=== PATIENT | female | born 1960 | race Caucasian/White ===

== ENCOUNTER 2018-11-21 19:30 | Emergency (ER) | payer MEDICAID ==
[2018-11-21 21:09] LABS: ADD MAN DIFF? NO; BASOPHILS % 0.4 % (0.0-2.0); EOSINOPHILS # 0.1 10^3/ul (0.0-0.5); EOSINOPHILS % 1.5 % (0.0-7.0); HEMATOCRIT 39.8 % (37.0-47.0); HEMOGLOBIN 12.9 g/dl (12.0-16.0); LYMPHOCYTES # 2.6 10^3/ul (0.8-2.9); MEAN CORPUSCULAR HEMOGLOBIN 30.3 pg (29.0-33.0); MEAN CORPUSCULAR HGB CONC 32.4 g/dl (32.0-37.0); MEAN CORPUSCULAR VOLUME 93.4 fl (82.0-101.0); MEAN PLATELET VOLUME 11.5 fl (7.4-10.4); MONOCYTE # 0.7 10^3/ul (0.3-0.9); MONOCYTES % 7.5 % (0.0-11.0); NEUTROPHIL # 5.6 10^3/ul (1.6-7.5); NEUTROPHILS % 61.3 % (39.0-77.0); PLATELET COUNT 332 10^3/UL (140-415); RED BLOOD COUNT 4.26 10^6/ul (4.20-5.40); RED CELL DISTRIBUTION WIDTH 12.4 % (11.5-14.5)
[2018-11-21 21:09] LABS: WHITE BLOOD COUNT 9.1 10^3/ul (4.8-10.8)
[2018-11-21 21:15] LABS: ANION GAP 13 (5-13); BLOOD UREA NITROGEN 11 mg/dl (7-20); CALCIUM 9.4 mg/dl (8.4-10.2); CARBON DIOXIDE 28 mmol/L (21-31); CHLORIDE 104 mmol/L (97-110); CREATININE 0.66 mg/dl (0.44-1.00); Estimated GFR > 60 mL/min (>60); GLUCOSE 113 mg/dl (70-220); POTASSIUM 3.8 mmol/L (3.5-5.1); SODIUM 145 mmol/L (135-144)
[2018-11-21 21:27] LABS: TROPONIN-I < 0.012 ng/ml (0.000-0.120)
[2018-11-21] MEDS: KETOROLAC 15 MG INJ IV (21:30)
[2018-11-21] MEDS: METHYLPREDNISOLONE 125 MG INJ IV (21:30)
[2018-11-21] MEDS: ALBUTEROL 0.5% (NEB) 2.5 MG/0.5 ML AMP INH (22:07)
[2018-11-21] MEDS: IPRATROPIUM (NEB) 0.5 MG/2.5 ML AMP INH (22:07)
== END 2018-11-21 23:52 | disposition home or self-care (01) ==
LOC: E/R 19:30
DX: J45.21 Mild intermittent asthma with (acute) exacerbation (principal); G44.219 Episodic tension-type headache, not intractable; E11.9 Type 2 diabetes mellitus without complications; I10 Essential (primary) hypertension; Z79.82 Long term (current) use of aspirin; Z79.84 Long term (current) use of oral hypoglycemic drugs; Z86.73 Personal history of transient ischemic attack (TIA), and cerebral infarction without residual deficits
CPT/HCPCS: 36415; 71045; 80048; 84484; 85025; 93005; 94644; 96374; 96375; 99285-25

== ENCOUNTER 2019-02-10 12:34 | Emergency (ER) | payer MEDICAID ==
[2019-02-10 13:15] LABS: ADD MAN DIFF? NO
[2019-02-10] MEDS: FAMOTIDINE 20 MG INJ IV (13:16)
[2019-02-10] MEDS: SOD CHLORIDE 0.9% 1,000 ML IV (13:16)
[2019-02-10] MEDS: morphine 4 MG/ML VIAL IV (13:16)
[2019-02-10 13:20] LABS: WHITE BLOOD COUNT 8.3 10^3/ul (4.8-10.8)
[2019-02-10 13:20] LABS: BASOPHILS % 0.4 % (0.0-2.0); EOSINOPHILS # 0.1 10^3/ul (0.0-0.5); EOSINOPHILS % 1.4 % (0.0-7.0); HEMATOCRIT 38.9 % (37.0-47.0); HEMOGLOBIN 12.7 g/dl (12.0-16.0); LYMPHOCYTES # 2.8 10^3/ul (0.8-2.9); LYMPHOCYTES % 33.6 % (15.0-51.0); MEAN CORPUSCULAR HEMOGLOBIN 30.2 pg (29.0-33.0); MEAN CORPUSCULAR HGB CONC 32.6 g/dl (32.0-37.0); MEAN CORPUSCULAR VOLUME 92.6 fl (82.0-101.0); MEAN PLATELET VOLUME 11.1 fl (7.4-10.4); MONOCYTE # 0.6 10^3/ul (0.3-0.9); MONOCYTES % 7.7 % (0.0-11.0); NEUTROPHIL # 4.7 10^3/ul (1.6-7.5); NEUTROPHILS % 56.5 % (39.0-77.0); PLATELET COUNT 293 10^3/UL (140-415); RED CELL DISTRIBUTION WIDTH 12.7 % (11.5-14.5)
[2019-02-10 13:42] LABS: ADD UMIC YES; INR 0.92; PROTIME 12.5 Sec (11.9-14.9); UR ASCORBIC ACID 20 mg/dL (NEGATIVE); UR BILIRUBIN (Dip) NEGATIVE (NEGATIVE); UR BLOOD (Dip) NEGATIVE (NEGATIVE); UR CLARITY SLIGHTLY CLOUDY (CLEAR); UR COLOR YELLOW (YELLOW); UR GLUCOSE (Dip) NEGATIVE (NEGATIVE); UR KETONES (Dip) NEGATIVE (NEGATIVE); UR LEUKOCYTE ESTERASE (Dip) TRACE Leu/ul (NEGATIVE); UR MUCUS FEW /HPF (NONE SEEN); UR NITRITE (Dip) NEGATIVE (NEGATIVE); UR RBC 3 /HPF (0-5); UR SPECIFIC GRAVITY (Dip) 1.021 (1.003-1.030); UR SQUAMOUS EPITHELIAL CELL MODERATE /HPF (FEW); UR TOTAL PROTEIN (Dip) NEGATIVE (NEGATIVE); UR UROBILINOGEN (Dip) NEGATIVE (NEGATIVE); UR WBC 4 /HPF (0-5)
[2019-02-10 13:54] LABS: ALANINE AMINOTRANSFERASE 24 IU/L (13-69); ALBUMIN 4.3 g/dl (3.3-4.9); ALBUMIN/GLOBULIN RATIO 1.16; ALKALINE PHOSPHATASE 111 IU/L (42-121); AMYLASE 66 U/L (11-123); ANION GAP 8 (5-13); ASPARTATE AMINO TRANSFERASE 31 IU/L (15-46); BILIRUBIN,INDIRECT 0.6 mg/dl (0-1.1); BILIRUBIN,TOTAL 0.6 mg/dl (0.2-1.3); BLOOD UREA NITROGEN 11 mg/dl (7-20); CALCIUM 9.4 mg/dl (8.4-10.2); CARBON DIOXIDE 29 mmol/L (21-31); CHLORIDE 107 mmol/L (97-110); CREATININE 0.66 mg/dl (0.44-1.00); Estimated GFR > 60 mL/min (>60); GLUCOSE 128 mg/dl (70-220); LIPASE 39 U/L (23-300); SODIUM 144 mmol/L (135-144)
[2019-02-10 14:05] LABS: TROPONIN-I < 0.012 ng/ml (0.000-0.120)
[2019-02-10] MEDS: SOD CHLORIDE 0.9% 100 ML (14:49)
[2019-02-10] MEDS: IOHEXOL 300MG/ML 150 ML BTL (14:49)
[2019-02-10] MEDS: MAGNESIUM HYDROXIDE 30ML CUP PO (15:55)
== END 2019-02-10 16:10 | disposition home or self-care (01) ==
LOC: E/R 12:34
DX: R10.32 Left lower quadrant pain (principal); I10 Essential (primary) hypertension; J45.909 Unspecified asthma, uncomplicated; E11.9 Type 2 diabetes mellitus without complications; Z86.73 Personal history of transient ischemic attack (TIA), and cerebral infarction without residual deficits; Z79.82 Long term (current) use of aspirin; Z79.84 Long term (current) use of oral hypoglycemic drugs
CPT/HCPCS: 74177; 80053; 81001; 81025; 82150; 83690; 84484; 85025; 85610; 85730; 87086; 93005; 96374; 96375; 99285-25

== ENCOUNTER 2019-03-19 16:35 | Emergency (ER) | payer MEDICAID ==
[2019-03-19 17:07] LABS: ADD MAN DIFF? NO
[2019-03-19] MEDS: ALBUTEROL 0.083% (NEB) 2.5 MG/3 ML AMP NEB (17:08)
[2019-03-19] MEDS: IPRATROPIUM (NEB) 0.5 MG/2.5 ML AMP NEB (17:08)
[2019-03-19 17:10] LABS: WHITE BLOOD COUNT 8.4 10^3/ul (4.8-10.8)
[2019-03-19 17:10] LABS: BASOPHIL # 0.1 10^3/ul (0.0-0.1); BASOPHILS % 0.7 % (0.0-2.0); EOSINOPHILS # 0.2 10^3/ul (0.0-0.5); EOSINOPHILS % 2.4 % (0.0-7.0); HEMOGLOBIN 12.5 g/dl (12.0-16.0); LYMPHOCYTES # 3.2 10^3/ul (0.8-2.9); LYMPHOCYTES % 37.7 % (15.0-51.0); MEAN CORPUSCULAR HEMOGLOBIN 30.8 pg (29.0-33.0); MEAN CORPUSCULAR HGB CONC 33.8 g/dl (32.0-37.0); MEAN CORPUSCULAR VOLUME 91.1 fl (82.0-101.0); MEAN PLATELET VOLUME 11.1 fl (7.4-10.4); MONOCYTE # 0.6 10^3/ul (0.3-0.9); MONOCYTES % 7.3 % (0.0-11.0); NEUTROPHIL # 4.3 10^3/ul (1.6-7.5); NEUTROPHILS % 51.5 % (39.0-77.0); PLATELET COUNT 298 10^3/UL (140-415); RED BLOOD COUNT 4.06 10^6/ul (4.20-5.40); RED CELL DISTRIBUTION WIDTH 12.2 % (11.5-14.5)
[2019-03-19 17:28] LABS: ANION GAP 9 (5-13); BLOOD UREA NITROGEN 9 mg/dl (7-20); CALCIUM 9.1 mg/dl (8.4-10.2); CARBON DIOXIDE 29 mmol/L (21-31); CHLORIDE 107 mmol/L (97-110); CREATININE 0.61 mg/dl (0.44-1.00); Estimated GFR > 60 mL/min (>60); GLUCOSE 117 mg/dl (70-220); POTASSIUM 3.5 mmol/L (3.5-5.1); SODIUM 145 mmol/L (135-144)
[2019-03-19] MEDS: IBUPROFEN 800 MG TAB PO (17:52)
== END 2019-03-19 19:23 | disposition home or self-care (01) ==
LOC: E/R 16:35
DX: J20.9 Acute bronchitis, unspecified (principal); I10 Essential (primary) hypertension; J45.909 Unspecified asthma, uncomplicated; Z79.82 Long term (current) use of aspirin; Z86.73 Personal history of transient ischemic attack (TIA), and cerebral infarction without residual deficits
CPT/HCPCS: 36415; 71045; 80048; 85025; 93005; 94664; 99285-25